=== PATIENT | female | born 2000 | race Caucasian/White ===

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

== ENCOUNTER 2020-01-19 08:50 | Inpatient (IN) | payer OTHER ==
--- OUTSIDE RECORDS SUMMARY | 2020-01-19 09:15 | XMS ---
:2000 Author Organization [facility] Support Name Relationship Address Phone FOOTLOCKER Unavailable [address] [place] [address] DENA LANDIS MOTHER [id number] [place] [address] UE Unavailable Unavailable Unavailable TEODORO EATON FATHER [address] [place] [address] teodoro eaton Unavailable [address] [place] [id number] Re-disclosure Warning The records that you are about to access may contain information from federally- assisted alcohol or drug abuse programs. If such information is present, then the following federally mandated warning applies: This information has been disclosed to you from records protected by federal confidentiality rules (42 CFR part 2). The federal rules prohibit you from making any further disclosure of this information unless further disclosure is expressly permitted by the written consent of the person to whom it pertains or as otherwise permitted by 42 CFR part 2. A general authorization for the release of medical or other information is NOT sufficient for this purpose. The Federal rules restrict any use of the information to criminally investigate or prosecute any alcohol or drug abuse patient.The records that you are about to access may contain highly sensitive health information, the redisclosure of which is protected by Article 27-F of the [facility] Public Health law. If you continue you may haveaccess to information: Regarding HIV / AIDS; Provided by facilities licensed or operated by the [facility] Office of Mental Health; or Provided by the [facility] Office for People With Developmental Disabilities. If such information is present, then the following [facility] mandated warning applies: This information has been disclosed to you from confidential records which are protected by state law. State law prohibits you from making any further disclosure of this information without the specific written consent of the person to whom it pertains, or as otherwise permitted by law. Any unauthorized further disclosure in violation of state law may result in a fine or chcf sentence or both. A general authorization for the release of medical or other information is NOT sufficient authorization for further disclosure. Insurance Providers Payer name Policy type Policy ID Covered Covered alliance party's Policy P livier / Coverage alliance party ID relationship to [place] [facility] [place] [facility] [id number] SP [id number] N SELF PAY SP INSURANCE C[employer] [id number] FA [id number] [facility] HEALTHCARE HMO PENDING WC/NF [id number] SP [id number] ONLY
[2020-01-19] MEDS ORDERED: PROMETHAZINE HCL 25 MG/1 ML VIAL IVPUSH ONE (09:37)
[2020-01-19] MEDS ORDERED: BUTORPHANOL TARTRATE 1 MG/ML VIAL IVPB ONE (09:37)
[2020-01-19 09:38] VITALS: BMI 26.9
--- NOTE | 2020-01-19 09:41 | HP ---
Past Medical History - Admission History of Present Illness: 19 yo @ 40 0/7 wks by first trimester ultrasound, EDC 01/19/2020 uncomplicated Presents today with contractions Q 2-3 minutes, found to be 4 cm on admission. + FM, no LOF or VB History Source: Patient Limitations to Obtaining History: No Limitations - Past Medical History Cardiovascular: No: HTN Pulmonary: No: Asthma ...: 1 ...EDC by Sono: 01/19/20 Heme/Onc: No: Anemia - Past Surgical History Past Surgical History: Yes: None Hx Myomectomy: No Hx Transabdominal Cerclage: No - Smoking History Smoking history: Never smoked Have you smoked in the past 12 months: No - Alcohol/Substance Use Hx Alcohol Use: No - Social History History of Recent Travel: No Home Medications - Allergies Allergies/Adverse Reactions: Allergies Allergy/AdvReac Type Severity Reaction Status Date / Time No Known Allergies Allergy Verified 11/11/19 16:38 - Home Medications Home Medications: Ambulatory Orders NK [No Known Home Medication] 01/27/15 Family Medical History Family History: Denies Review of Systems - Review of Systems Constitutional: reports: No Symptoms Neck: reports: No Symptoms Cardiovascular: reports: No Symptoms Respiratory: reports: No Symptoms Gastrointestinal: reports: No Symptoms Genitourinary: reports: No Symptoms Musculoskeletal: reports: No Symptoms Neurological: reports: No Symptoms Physical Exam - Maternity Vital Signs: Vital Signs Temperature 98.2 F 01/19/20 09:17 Pulse Rate 84 01/19/20 09:17 Respiratory Rate 18 01/19/20 09:17 Blood Pressure 127/79 01/19/20 09:17 O2 Sat by Pulse Oximetry (%) Constitutional: Yes: Well Nourished, No Distress, Calm Cardiovascular: Yes: Regular Rate and Rhythm Lungs: Clear to auscultation - Abdominal Exam/OB Number of Fetuses: Single Category: I - Physical Exam ...Motor Strength: WNL Psychiatric: Yes: Alert, Oriented - Labs Lab Results: PNL: O positive, antibody neg; RPR HR; HIV neg x 2; HBs Ag neg; HCV neg; Rubella Immune; Varicella Immune; GCT 132; GBS neg Hemorrhage Risk Assessment - Risk Factors Medium Risk Factors: Yes: None High Risk Factors: Yes: None Risk Score: 1 Risk Level: Medium Risk Assessment/Plan 19 yo @ 40 wks active labor 1. Admit to L&D 2. Routine labs and Covid test collected and sent 3. GBS neg 4. Category I FHT 5. Will offer pain medication upon patient request 6. Will proceed with expectant management
[2020-01-19] MEDS ORDERED: BUTORPHANOL TARTRATE 2 MG/ML VIAL ONE (09:42)
[2020-01-19 10:22] LABS: BASO % 0.2 % (0-2.0); EOS % 0.8 % (0-4.5); HEMATOCRIT 31.4 % (32.4-45.2); HEMOGLOBIN 9.7 GM/dL (10.7-15.3); LYMPH % 19.9 % (8-40); MCH 21.8 pg (25.7-33.7); MCHC 30.9 g/dl (32.0-36.0); MEAN CELL VOLUME 70.4 fl (80-96); MEAN PLT VOLUME 10.2 fl (7.5-11.1); MONO % 8.6 % (3.8-10.2); NEUT % 70.5 % (42.8-82.8); PLATELET COUNT 166 K/MM3 (134-434); RBC 4.46 M/mm3 (3.60-5.2); RDW 19.7 % (11.6-15.6); WHITE BLOOD COUNT 13.1 K/mm3 (4.0-10.0)
[2020-01-19 10:29] LABS: INR 0.9 (0.83-1.09); PROTHROMBIN TIME (PATIENT) 10.6 SEC (9.7-13.0)
[2020-01-19 10:51] LABS: ANISOCYTOSIS 2+; MACROCYTOSIS 0; PLATELET ESTIMATE NORMAL
[2020-01-19 10:56] LABS: BLOOD UREA NITROGEN 8.6 mg/dL (7-18); CALCIUM 9.1 mg/dL (8.5-10.1); CREATININE 0.4 mg/dL (0.55-1.3); POTASSIUM 3.7 mmol/L (3.5-5.1)
[2020-01-19] MEDS ORDERED: PCA PUMP NR ONE (11:10)
[2020-01-19] MEDS ORDERED: FENTANYL/BUPIVACAINE/NS/PF - PCEA - 50 ML DISP.SYRIN EP ONE (11:10)
[2020-01-19] MEDS ORDERED: BUPIVACAINE HCL/PF 0.25% (2.5MG/ML) 10 ML VIAL ONE (11:15)
[2020-01-19] MEDS: FENTANYL/BUPIVACAINE/NS/PF - PCEA - 50 ML DISP.SYRIN EP SCH ×2 (11:35→11:40)
[2020-01-19] MEDS ORDERED: NALOXONE HCL 0.4 MG/ML VIAL IVPUSH PRN (11:43)
[2020-01-19] MEDS ORDERED: OXYTOCIN 20 UNITS in 0.9% NS 20 UNIT/1,000 ML INFUS.BAG IV ONE (12:32)
[2020-01-19] MEDS ORDERED: OXYTOCIN 30 UNITS in 0.9% NS 30 UNIT/500 ML INFUS.BAG IVPB ONE (12:32)
--- NOTE | 2020-01-19 12:35 | PN ---
Progress Note, Labor Vaginal Exam #1 Labor Exam Date: 01/19/20 Labor Exam Time: 12:34 Heart Rate (range): 130 Dilatation: 8 Effacement (%): 100 Amniotic Membrane Status: Ruptured (meconium) Presentation: Vertex/Position Station: -1 Remarks: 19 yo active labor, contractions Q 5-6 minutes, will start pitocin augmentation 1. Category I FHT 2. GBS neg 3. Pain well controlled with epidural 4. Will proceed with expectant management
[2020-01-19] MEDS ORDERED: OXYTOCIN 30 UNITS in 0.9% NS 30 UNIT/500 ML INFUS.BAG IVPB SCH (13:15)
[2020-01-19] MEDS ORDERED: WITCH HAZEL 50% (TUCKS) 40 PAD/JAR PAD TP PRN (16:50)
[2020-01-19] MEDS ORDERED: BENZOCAINE 20% 57 GM BOTTLE TP PRN (16:50)
[2020-01-19] MEDS ORDERED: BISACODYL 10 MG SUPP.RECT RC PRN (16:50)
[2020-01-19] MEDS ORDERED: METHYLERGONOVINE MALEATE 0.2 MG/1 ML AMP IM PRN (16:50)
[2020-01-19] MEDS ORDERED: IBUPROFEN 600 MG TABLET (FP) PO PRN (16:50)
[2020-01-19] MEDS ORDERED: BENZOCAINE 28 GM HEMORRHOIDAL OINTMENT TP PRN (16:50)
[2020-01-19] MEDS ORDERED: ACETAMINOPHEN 325 MG TABLET (FP) PO PRN (16:50)
--- NOTE | 2020-01-19 16:54 | PN ---
Delivery - Delivery Vaginal Delivery: No Problems Type of Anesthesia: Epidural Episiotomy/Laceration: None EBL (cc): 300 Delivery, Single - Stages of Labor Date 2nd Stage Initiated: 01/19/20 Time 2nd Stage Initiated: 15:10 Date of Delivery: 01/19/20 Time of Delivery: 16:22 Date Placenta Delivered: 01/19/20 Time Placenta Delivered: : Placenta: Yes: Spontaneous - Condition of Infant Gender: Male Position: Right, OA - 1 Minute Total Score: 8 5 Minutes Total Score: 9 - Feeding Plan Initial Plan: Elected not to breastfeed exclusively throughout hospitalization Remarks - Remarks Remarks: Patient progressed to fully dilated and at 1622 via delivered a viable male in KRISTEN position, APGARs 8,9. Weight and length unknown at this time. Head delivered spontaneously, nuchal cord noted, shoulders and body delivered through without difficulty. Meconium fluid noted, Cord was clamped and cut, baby handed to waiting nursing staff Perineum and vagina examined, no lacerations noted. Placenta was delivered spontaneously and intact. 20 units of pitocin in 1 L IVF was given. All counts correct x 2. Mother and stable in LDR. EBL 300cc.
[2020-01-19] MEDS ORDERED: OXYTOCIN 20 UNITS in 0.9% NS 20 UNIT/1,000 ML INFUS.BAG IV SCH (17:00)
[2020-01-19] MEDS ORDERED: OXYTOCIN 20 UNITS in 0.9% NS 1000 ML INFUS.BAG IV ONE (17:15)
[2020-01-19 17:46] LABS: CORD BASE EXCESS -9.1 mmol/L (0-2); CORD HCO3 18.4 mmHg (20-29); CORD PCO2 45.2 mmHg (30-78); CORD pH 7.228 (7.14-7.44)
[2020-01-19 17:48] LABS: CORD BASE EXCESS -7.9 mmol/L (0-2); CORD HCO3 21.2 mmHg (20-29); CORD PCO2 57.9 mmHg (30-78); CORD pH 7.181 (7.14-7.44)
--- NOTE | 2020-01-20 08:50 | PN ---
Post Progress Note - Subjective Subjective: Patient without acute complaints. Reports tolerating oral intake without nausea or vomiting. Ambulating without dizziness. Denies fevers or chills. Pain well controlled with oral pain medication. Passing flatus. Post Day: 1 Type of Delivery: Vital Signs: Vital Signs Temperature 98.3 F 01/19/20 21:46 Pulse Rate 86 01/19/20 21:46 Respiratory Rate 18 01/19/20 21:46 Blood Pressure 109/71 01/19/20 21:46 O2 Sat by Pulse Oximetry (%) 99 01/19/20 16:00 Breast Exam: Yes: Soft Uterus: Yes: Fundus Firm, Fundus below umbilicus Abdomen/GI: Yes: Abdomen soft, Passing flatus, Tolerating PO. No: Abdominal Distention, Tender Lochia: Yes: Rubra Lochia, amount: Moderate Extremities: Yes: Calves non-tender. No: Edema - Labs Labs: CBC WBC 13.1 K/mm3 (4.0-10.0) H 01/19/20 10:08 RBC 4.46 M/mm3 (3.60-5.2) 01/19/20 10:08 Hgb 9.7 GM/dL (10.7-15.3) L 01/19/20 10:08 Hct 31.4 % (32.4-45.2) L D 01/19/20 10:08 MCV 70.4 fl (80-96) L 01/19/20 10:08 MCH 21.8 pg (25.7-33.7) L D 01/19/20 10:08 MCHC 30.9 g/dl (32.0-36.0) L 01/19/20 10:08 RDW 19.7 % (11.6-15.6) H 01/19/20 10:08 Plt Count 166 K/MM3 (134-434) 01/19/20 10:08 MPV 10.2 fl (7.5-11.1) 01/19/20 10:08 Absolute Neuts (auto) 9.2 K/mm3 (1.5-8.0) H 01/19/20 10:08 Neutrophils % 70.5 % (42.8-82.8) D 01/19/20 10:08 Lymphocytes % 19.9 % (8-40) D 01/19/20 10:08 Monocytes % 8.6 % (3.8-10.2) 01/19/20 10:08 Eosinophils % 0.8 % (0-4.5) 01/19/20 10:08 Basophils % 0.2 % (0-2.0) 01/19/20 10:08 Nucleated RBC % 0 % (0-0) 01/19/20 10:08 Hypochromia 0 01/19/20 10:08 Platelet Estimate Normal 01/19/20 10:08 Polychromasia 0 01/19/20 10:08 Poikilocytosis 0 01/19/20 10:08 Anisocytosis 2+ 01/19/20 10:08 Microcytosis 2+ 01/19/20 10:08 Macrocytosis 0 01/19/20 10:08 Assessment/Plan 19 yo PPD # 1 s/p , afebrile, vital signs stable, doing well 1. Continue routine care. 2. Follow up AM CBC 3. Rh positive status, no rhogam indicated. 4. Encourage ambulation 5. Continue oral pain medication 6. Anticipate discharge home day #2 7. Patient states desires circumcision for infant. Discussed risks including infection, bleeding, damage to tip of penis, and unsatisfactory result, resulting in surgical repair or repeat circumcision. Patient expressed understanding and consents to procedure. Baby pending evaluation and clearance by counselor nurses' association, Dr. Rodriguez.
[2020-01-20 10:02] LABS: BASO % 0.2 % (0-2.0); EOS % 0.6 % (0-4.5); HEMATOCRIT 27.2 % (32.4-45.2); HEMOGLOBIN 8.3 GM/dL (10.7-15.3); LYMPH % 14.4 % (8-40); MCH 21.9 pg (25.7-33.7); MCHC 30.7 g/dl (32.0-36.0); MEAN CELL VOLUME 71.5 fl (80-96); MEAN PLT VOLUME 10.2 fl (7.5-11.1); MONO % 6.8 % (3.8-10.2); PLATELET COUNT 155 K/MM3 (134-434); RBC 3.81 M/mm3 (3.60-5.2); RDW 20.2 % (11.6-15.6); WHITE BLOOD COUNT 16.8 K/mm3 (4.0-10.0)
[2020-01-20] MEDS: PRENATAL VITAMINS W/ FOLIC ACID TABLET (FP) PO SCH (10:52)
[2020-01-20] MEDS ORDERED: SENNOSIDES/DOCUSATE COMBO (SENNA PLUS) TABLET (UD) PO PRN (22:00)
--- NOTE | 2020-01-21 07:32 | DS ---
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 Vital Signs: Vital Signs Temperature 98.3 F 01/20/20 22:16 Pulse Rate 82 01/20/20 22:16 Respiratory Rate 18 01/20/20 22:16 Blood Pressure 90/58 L 01/20/20 22:16 O2 Sat by Pulse Oximetry (%) 98 01/20/20 22:16 Constitutional: Yes: Well Nourished, No Distress, Calm Eyes: Yes: WNL, Conjunctiva Clear, EOM Intact HENT: Yes: WNL, Atraumatic, Normocephalic Neck: Yes: WNL, Supple, Trachea Midline Cardiovascular: Yes: WNL, Regular Rate and Rhythm Respiratory: Yes: WNL, Regular, CTA Bilaterally Gastrointestinal: Yes: WNL ...Rectal Exam: Yes: WNL Renal/: Yes: WNL ....Post : Yes: Uterus firm, Uterus non-tender, Slight lochia rubra Breast(s): Yes: WNL Musculoskeletal: Yes: WNL Extremities: Yes: WNL Edema: No Integumentary: Yes: WNL Neurological: Yes: WNL, Alert, Oriented ...Motor Strength: WNL Psychiatric: Yes: WNL, Alert, Oriented Labs: CBC, BMP 01/20/20 09:00 01/19/20 10:08 Delivery - Delivery Vaginal Delivery: No Problems, Spontaneous Type of Anesthesia: Epidural Episiotomy/Laceration: None EBL (cc): 300 Delivery, Single - Stages of Labor Date 1st Stage Initiatied: 01/19/20 Time 1st Stage Initiated: 03:00 Date 2nd Stage Initiated: 01/19/20 Time 2nd Stage Initiated: 15:10 Date of Delivery: 01/19/20 Time of Delivery: 16:22 Time Placenta Delivered: 16:27 Placenta: Yes: Spontaneous - Condition of [employer]/Customer Sales Representative Present: No Gender: Male Weight: 6 lb 15 oz Position: Right, OA Total Hours ROM (Hrs/Mins): 3H55M - 1 Minute Total Score: 8 5 Minutes Total Score: 9 - [place] Feeding Plan Initial Plan: Elected not to breastfeed exclusively throughout hospitalization Discharge Summary Problems reviewed: Yes Reason For Visit: LABOR ADMIT Procedures: Principal: Hospital Course: no complication Plan of Treatment: follow up office 4 weeks Condition: Good - Instructions Diet, Activity, Other Instructions: regular diet , no intercourse , follow up office 4 weeks, if fever,pain, heavy vaginal bleeding call md Referrals: Dean Das MD [Staff Physician] - Disposition: HOME - Home Medications Comprehensive Discharge Medication List: Ambulatory Orders Ibuprofen [Motrin -] 600 mg PO QID #28 tablet 01/20/20
[2020-01-21] MEDS: PRENATAL VITAMINS W/ FOLIC ACID TABLET (FP) PO SCH (11:00)
[2020-01-21 15:20] VITALS: BP 126/74; PULSE 97; TEMP 99
== END 2020-01-21 12:45 | disposition home or self-care (01) | DRG 560 ==
LOC: UNDOADMIN 08:50 → JLDR 08:50 → JERBED 08:50 → J3W 20:36
PROVIDERS: ADMIT Obstetrics & Gynecology; ATTEND Obstetrics & Gynecology
PROC: 10E0XZZ Delivery of Products of Conception, External Approach (ICD-10-PCS; principal; 2020-01-19)
DX: O48.0 Post-term pregnancy (principal); O77.0 Labor and delivery complicated by meconium in amniotic fluid; O69.81X0 Labor and delivery complicated by cord around neck, without compression, not applicable or unspecified; Z3A.40 40 weeks gestation of pregnancy; Z37.0 Single live birth
CPT/HCPCS: 36415; 36600; 59409; 80048; 82803; 85025; 85610; 85730; 86780; 86850; 86900; 86901; U0003

== ENCOUNTER 2020-07-07 11:37 | Emergency (ER) | payer OTHER ==
[2020-07-07 11:45] VITALS: BP 109/69; TEMP 97.8; BMI 22.1
[2020-07-07 13:15] VITALS: PULSE 80
== END 2020-07-07 13:07 | disposition home or self-care (01) ==
LOC: JER 11:37
DX: R07.9 Chest pain, unspecified (principal)
CPT/HCPCS: 71046-TC-FY; 93005; 93010; 99284-25

== ENCOUNTER 2022-05-20 06:50 | Inpatient (IN) | payer OTHER ==
[2022-05-20] MEDS: ELECTROLYTE-148 SOLN 1,000 ML IV SCH ×2 (07:25→15:20)
[2022-05-20 08:02] VITALS: BMI 27.1
[2022-05-20 08:43] LABS: INR 0.91 (0.83-1.09); PROTHROMBIN TIME (PATIENT) 10.5 SEC (9.7-13.0)
[2022-05-20 08:46] LABS: ACTIVATED PTT 25.7 SECONDS (25.2-36.5)
[2022-05-20 08:51] LABS: HEMATOCRIT 29.1 % (32.4-45.2); HEMOGLOBIN 9.2 GM/dL (10.7-15.3); MCH 22.4 pg (25.7-33.7); MCHC 31.6 g/dl (32.0-36.0); MEAN CELL VOLUME 70.7 fl (80-96); MEAN PLT VOLUME 9.3 fl (7.5-11.1); PLATELET COUNT 230 10^3/uL (134-434); RBC 4.12 M/mm3 (3.60-5.2); RDW 19.2 % (11.6-15.6); WHITE BLOOD COUNT 9.6 K/mm3 (4.0-10.0)
[2022-05-20] MEDS ORDERED: OXYTOCIN 30 UNITS in 0.9% NS 30 UNIT/500 ML INFUS.BAG IVPB SCH (09:00)
[2022-05-20] MEDS ORDERED: AMPICILLIN - 2 GM in SODIUM CHLORIDE 100 ML IVPB ONE (09:00)
[2022-05-20] MEDS ORDERED: OXYTOCIN 30 UNITS in 0.9% NS 30 UNIT/500 ML INFUS.BAG IVPB ONE (09:14)
[2022-05-20] MEDS ORDERED: AMPICILLIN SODIUM 2 GM VIAL ONE (09:14)
[2022-05-20] MEDS ORDERED: SODIUM CHLORIDE 100 ML IVPB ONE ×2 (09:14→13:27)
[2022-05-20 10:11] LABS: ANISOCYTOSIS 3+; MACROCYTOSIS 0
[2022-05-20 10:22] LABS: CALCIUM 8.9 mg/dL (8.5-10.1)
[2022-05-20 10:24] LABS: ALBUMIN 2.4 g/dl (3.4-5.0); BLOOD UREA NITROGEN 9.9 mg/dL (7-18)
[2022-05-20 10:27] LABS: BILIRUBIN,TOTAL 0.4 mg/dL (0.2-1); CREATININE 0.5 mg/dL (0.55-1.3); TOT PROT 6.5 g/dl (6.4-8.2)
[2022-05-20] MEDS ORDERED: AMPICILLIN SODIUM 1 GM VIAL ONE (13:26)
[2022-05-20] MEDS: AMPICILLIN - 1 GM in SODIUM CHLORIDE 100 ML IVPB SCH ×3 (13:33→22:56)
[2022-05-20] MEDS ORDERED: FENTANYL/BUPIVACAINE/NS/PF - PCEA - 50 ML DISP.SYRIN EP ONE (15:58)
[2022-05-20] MEDS ORDERED: FENTANYL CITRATE/PF 50 MCG/ML VIAL ONE (16:03)
[2022-05-20] MEDS ORDERED: BUPIVACAINE HCL/PF 0.25% (2.5MG/ML) 10 ML VIAL ONE (16:03)
[2022-05-20] MEDS ORDERED: NALOXONE HCL 0.4 MG/ML VIAL IVPUSH PRN (16:27)
[2022-05-20] MEDS ORDERED: FENTANYL/BUPIVACAINE/NS/PF - PCEA - 50 ML DISP.SYRIN EP SCH (16:30)
[2022-05-20] MEDS ORDERED: OXYTOCIN 20 UNITS in 0.9% NS 20 UNIT/1,000 ML INFUS.BAG IV ONE (16:50)
[2022-05-20] MEDS ORDERED: BENZOCAINE 20% 57 GM BOTTLE TP PRN (17:49)
[2022-05-20] MEDS ORDERED: BISACODYL 10 MG SUPP.RECT RC PRN (17:49)
[2022-05-20] MEDS ORDERED: ACETAMINOPHEN 325 MG TABLET (FP) PO PRN (17:49)
[2022-05-20] MEDS ORDERED: BENZOCAINE 28 GM HEMORRHOIDAL OINTMENT TP PRN (17:49)
[2022-05-20] MEDS ORDERED: METHYLERGONOVINE MALEATE 0.2 MG/1 ML AMP IM PRN (17:49)
[2022-05-20] MEDS ORDERED: oxyCODONE HCL 5 MG TABLET PO PRN (17:49)
[2022-05-20] MEDS ORDERED: WITCH HAZEL 50% (TUCKS) 40 PAD/JAR PAD TP PRN (17:49)
[2022-05-20] MEDS ORDERED: OXYTOCIN 20 UNITS in 0.9% NS 20 UNIT/1,000 ML INFUS.BAG IV SCH (18:00)
[2022-05-20 18:18] LABS: CORD BASE EXCESS -9.7 mmol/L (0-2); CORD HCO3 19.8 mmHg (20-29); CORD PCO2 57.3 mmHg (30-78); CORD pH 7.156 (7.14-7.44)
[2022-05-20 18:21] LABS: CORD BASE EXCESS -6.3 mmol/L (0-2); CORD HCO3 19.9 mmHg (20-29); CORD PCO2 42.1 mmHg (30-78); CORD pH 7.293 (7.14-7.44)
[2022-05-21 07:41] LABS: BASO % 0.3 % (0-2.0); EOS % 0.8 % (0-4.5); HEMATOCRIT 28.8 % (32.4-45.2); HEMOGLOBIN 8.9 GM/dL (10.7-15.3); LYMPH % 18.6 % (8-40); MCH 21.8 pg (25.7-33.7); MEAN CELL VOLUME 70.5 fl (80-96); MEAN PLT VOLUME 9.4 fl (7.5-11.1); MONO % 5.5 % (3.8-10.2); NEUT % 74.8 % (42.8-82.8); PLATELET COUNT 205 10^3/uL (134-434); RBC 4.09 M/mm3 (3.60-5.2); RDW 18.8 % (11.6-15.6); WHITE BLOOD COUNT 13.9 K/mm3 (4.0-10.0)
[2022-05-21 09:10] LABS: ANISOCYTOSIS 3+; MACROCYTOSIS 0
[2022-05-21] MEDS: IBUPROFEN 600 MG TABLET (FP) PO PRN (09:41)
[2022-05-21] MEDS: PRENATAL VITAMINS W/ FOLIC ACID TABLET (FP) PO SCH (09:41)
[2022-05-21] MEDS ORDERED: SENNOSIDES/DOCUSATE COMBO (SENNA PLUS) TABLET (UD) PO PRN (22:00)
[2022-05-22] MEDS: IBUPROFEN 600 MG TABLET (FP) PO PRN ×2 (00:52→10:40)
[2022-05-22] MEDS: PRENATAL VITAMINS W/ FOLIC ACID TABLET (FP) PO SCH (10:32)
[2022-05-22 10:49] VITALS: BP 94/61; PULSE 92; RESP 16; TEMP 97.7
== END 2022-05-22 12:45 | disposition home or self-care (01) | DRG 807 ==
LOC: JLDR 06:50 → J3W 20:01
PROVIDERS: ADMIT Obstetrics & Gynecology; ATTEND Obstetrics & Gynecology
PROC: 10E0XZZ Delivery of Products of Conception, External Approach (ICD-10-PCS; principal; 2022-05-20)
PROC: 3E033VJ Introduction of Other Hormone into Peripheral Vein, Percutaneous Approach (ICD-10-PCS; 2022-05-20)
PROC: 10907ZC Drainage of Amniotic Fluid, Therapeutic from Products of Conception, Via Natural or Artificial Opening (ICD-10-PCS; 2022-05-20)
DX: O48.0 Post-term pregnancy (principal); Z37.0 Single live birth; O24.429 Gestational diabetes mellitus in childbirth, unspecified control; O99.824 Streptococcus B carrier state complicating childbirth; Z3A.40 40 weeks gestation of pregnancy
CPT/HCPCS: 36415; 36600; 59409; 80053; 82803; 82962; 85025; 85610; 85730; 86780; 86850; 86900; 86901; C9803-CS; U0003; U0005